=== PATIENT | male | born 1975 | race Two or more races ===

== ENCOUNTER 2016-05-18 13:42 | Emergency (ER) | payer SELFPAY ==
[~2016-05-18] VITALS: Ht 167.6 cm; Wt 64.0 kg
[2016-05-18] MEDS ORDERED: NAPROXEN500 MG PO (14:16)
[2016-05-18 14:48] VITALS: BP 128/84
== END 2016-05-18 15:00 | disposition home or self-care (01) ==
LOC: EME 13:42
DX: J02.9 Acute pharyngitis, unspecified (principal)
CPT/HCPCS: 99281; 99283; J0561; J1100